=== PATIENT | female | born 1975 | race Caucasian/White ===

== ENCOUNTER 2023-09-18 21:29 | Emergency (ER) | payer MEDICAID ==
[~2023-09-18] VITALS: Ht 162.6 cm; Wt 65.0 kg
[2023-09-18 21:34] VITALS: BP 112/71; PULSE 89; RESP 18; TEMP 98.2; O2SAT 98
== END 2023-09-19 00:30 | disposition home or self-care (01) ==
LOC: ER 21:29
DX: F10.129 Alcohol abuse with intoxication, unspecified (principal); F43.9 Reaction to severe stress, unspecified; F41.9 Anxiety disorder, unspecified; F32.A Depression, unspecified; F19.90 Other psychoactive substance use, unspecified, uncomplicated
CPT/HCPCS: 99283